=== PATIENT | female | born 1970 | race Caucasian/White ===

== ENCOUNTER 2016-08-25 11:08 | Emergency (ER) | payer SELFPAY ==
[2016-08-25] MEDS ORDERED: NO HOME MEDICATION XX (11:24)
[2016-08-25 11:55] LABS: BASO % 0.2 % (0-2); EOS % 1.7 % (0-7); EOSINOPHIL ABSOLUTE COUNT 0.2 tho/cmm (0.0-0.7); HCT-HEMATOCRIT 43.7 % (34.0-49.0); HGB-HEMOGLOBIN 14.2 gm/dl (12.0-15.5); IMMATURE GRANULOCYTES ABSOLUTE 0.02 tho/cmm (0-0.03); IMMATURE GRANULOCYTES PERCENT 0.2 % (0-0.3); LYMPH % 27.3 % (20-45); LYMPH ABSOLUTE COUNT 2.4 tho/cmm (0.8-4.5); MCH (MEAN CORPUSCULAR HGB) 29.5 pg (28.0-32.0); MCHC MEAN CORPUSCULAR HGB CONC 32.5 % (32.0-36.0); MCV (MEAN CELL VOLUME) 90.7 fl (82.0-96.0); MONO % 6.2 % (0-12); MONOCYTE ABSOLUTE COUNT 0.6 tho/cmm (0.0-1.2); NEUTROPHIL ABSOLUTE COUNT 5.8 tho/cmm (1.6-8.0); NEUTROPHIL-AUTOMATED 5.8 tho/cmm (1.6-8.0); NEUTROPHILS % 64.4 % (40-80); PLATELET COUNT 157 tho/cmm (150-450); RED BLOOD COUNT 4.82 mil/cmm (4.00-5.20); WHITE BLOOD COUNT 8.9 tho/cmm (4.0-10.0)
[2016-08-25 12:03] LABS: PREGNANCY-SERUM NEGATIVE (NEGATIVE)
[2016-08-25 12:13] LABS: ALB/GLOB RATIO 0.8 (0.8-2.0); ALBUMIN 3.5 g/dl (3.5-5.0); ALKALINE PHOSPHATASE 73 U/L (33-138); ALT/SGPT 32 U/L (12-78); BILIRUBIN,TOTAL 0.4 mg/dl (0-1.5); BLOOD UREA NITROGEN 14 mg/dl (6-24); CALCIUM 8.5 mg/dl (8.5-10.5); CARBON DIOXIDE-VENOUS 25 mmol/L (22-32); CHLORIDE 105 mmol/l (96-110); CREATININE 0.86 mg/dl (0.50-1.10); GLUCOSE 108 mg/dL (70-110); LIPASE 76 U/L (73-393); SODIUM 140 mmol/L (135-145); eGFR VALUE FOR BLACK >90 mL/Min
[2016-08-25 12:14] LABS: ANION GAP 14 mmol/L (0-20); POTASSIUM 3.9 mmol/L (3.7-5.1)
[2016-08-25 12:15] LABS: AST/SGOT 19 U/L (10-40)
[2016-08-25] MEDS ORDERED: NORCO 5-325 TA1 EACH PO (15:42)
== END 2016-08-25 16:08 ==
LOC: EDMED 11:08
PROVIDERS: Physician Assistant
DX: R07.9 Chest pain, unspecified (principal); R06.00 Dyspnea, unspecified; K80.20 Calculus of gallbladder without cholecystitis without obstruction
CPT/HCPCS: Q9967